=== PATIENT | female | born 1975 | race Caucasian/White ===

== ENCOUNTER 2016-08-18 06:06 | Emergency (ER) | payer OTHER ==
[~2016-08-18 06:06] MED LIST: BENZONATATE100 MG PO; FLU VACCINE 0.0.5 ML IM; LABETALOL HYDR100 MG PO; OMEPRAZOLE40 MG PO; PNEUMOVAX 0.5M0.5 ML IM
--- NOTE | 2016-08-18 06:39 | ED GENERAL ADULT ---
History of Present Illness General Chief Complaint: General Adult Stated Complaint: MULTIPLE COMPLAINTS Source: patient, family Exam Limitations: no limitations Vital Signs & Intake/Output Vital Signs & Intake/Output Vital Signs Date Time Temp Pulse Resp B/P Pulse O2 O2 Flow FiO2 Ox Delivery Rate 08/18 1055 97.1 69 18 149/71 96 Room Air 08/18 0903 98.6 76 18 178/84 98 Room Air 08/18 0755 162/100 08/18 0618 86 22 168/110 98 Triage Note: PER PT HEAD FEELS LIKE IT IS POPPING AND LIKE MY EYES HURT L ARM PAIN AND CHEST PAIN FEEL NAUSEOUS HX OF HTN ON LABETALOL. Triage Nurses Notes Reviewed? yes Onset: awoke with symptoms Duration: hour(s): Timing: recent history Injury Environment: home Severity: moderate Modifying Factors: Improves With: rest. Worsens With: movement. Associated Symptoms: headache, chest pain, nausea, photophobia : No Patient currently breastfeeds: No HPI: 40 yo woman h/o migraine headache, presents with headache and chest pain since 2am, when she awoke with these symptoms. She describes her headache as similar to her prior migraines, "except this one felt a little different... like a popping." She notes a tightness in her chest, worse with deep inspiration. She connotes mild nausea and photophobia, and facial tingling on left side along with left finger tingling. No focal weakness, fever, chills, cough, dyspnea, lower extremity swelling, confusion. She is otherwise well. ([place] OSBORN,FROYLAN Moreau) Allergies Coded Allergies: strawberry (Intermediate, HIVES 08/18/16) Iodinated Contrast Media - Oral and (HIVES 08/18/16) shellfish derived (HIVES 08/18/16) oxycodone (NAUSEA, ITCHING, GI UPSET 08/18/16) Reconcile Medications Benzonatate 100 MG CAPSULE 1 CAP PO TID COUGH (Reported) Flu Vaccine (Flu Vaccine 0.5 Ml (NORVATIS)) 0.5 ML SYR 0.5 ML IM ONCE VACCINE (Reported) LABETALOL HCL (Labetalol Hydrochloride) 100 MG TABLET 0.5 TAB PO BID BP ( Reported) Omeprazole 40 MG CAPSULE.DR 1 CAP PO DAILY ACID REFLUX (Reported) Pneumococcal Vaccine (Pneumovax 0.5ML DANNA) 25 MCG/0.5 ML VIAL 0.5 ML IM ONCE VACCINE (Reported) Prednisone 10 MG TABLET 1 TAB PO DAILY MIGRAINE TAKE 4 TABS FOR 3 DAYS THEN TAKE 3 TABS FOR 3 DAYS THEN TAKE 2 TABS FOR 3 DAYS THEN TAKE 1 TAB FOR 3 DAYS (HIRA OSBORN,[place] Castro) Past History Travel History Traveled to [place] past 21 day No Medical History Any Pertinent Medical History? see below for history Neurological: NONE EENT: NONE Cardiovascular: hypertension Respiratory: NONE Gastrointestinal: GERD Hepatic: NONE Renal: NONE Musculoskeletal: NONE Psychiatric: NONE Endocrine: GESTASTIONAL DM Cancer(s): ENDOMETRIAL CA History of MRSA: No History of VRE: No History of CDIFF: No Pneumonia Vaccine: 03/10/14 Influenza Vaccine: 03/09/14 Surgical History Surgical History: hysterectomy Psychosocial History Who do you live with Spouse Services at Home None What is your primary language Barbadian Tobacco Use: Quit >30 days ago Family History Hx Contributory? No (MT OSBORN,FROYLAN Moreau) Review of Systems Review of Systems Constitutional: Reports: no symptoms. EENTM: Reports: no symptoms. Respiratory: Reports: no symptoms. Cardiovascular: Reports: no symptoms. GI: Reports: no symptoms. Genitourinary: Reports: no symptoms. Musculoskeletal: Reports: no symptoms. Skin: Reports: no symptoms. Neurological/Psychological: Reports: no symptoms. Hematologic/Endocrine: Reports: no symptoms. Immunologic/Allergic: Reports: no symptoms. All Other Systems: Reviewed and Negative (MT OSBORN,FROYLAN Moreau) Physical Exam Physical Exam General Appearance: well developed/nourished, mild distress, moderate distress Head: atraumatic, tenderness along scalp musculature Eyes: Bilateral: normal appearance, PERRL, EOMI. Ears, Nose, Throat: normal pharynx, normal ENT inspection Neck: normal inspection, supple, full range of motion Respiratory: normal breath sounds, no respiratory distress, quiet respiration, lungs clear, parasternal chest wall tenderness to palpation Cardiovascular: regular rate/rhythm Gastrointestinal: normal bowel sounds, soft, non-tender, no organomegaly Back: normal inspection Extremities: normal inspection, normal capillary refill, normal range of motion, no edema Neurologic/Psych: no motor/sensory deficits, awake, alert, oriented x 3 Reflexes: 1+: bicep (R), bicep (L), knee (R), knee (L). Skin: intact, normal color, warm/dry Core Measures ACS in differential dx? No CVA/TIA Diagnosis: No Severe Sepsis Present: No Septic Shock Present: No ([place] OSBORN,FROYLAN Moreau) Progress Differential Diagnoses I considered the following diagnoses in my evaluation of the patient: migraine vs tension headache... i doubt intracranial hemorrhage vs cva/tia vs other. likely costocondritis vs other... I doubt mi/cardiac issues. Plan of Care: Orders Procedure Date/time Status TROPONIN LEVEL 08/18 625 Complete PROTHROMBIN TIME 08/18 625 Complete LIPASE 08/18 625 Complete COMPREHENSIVE METABOLIC PANEL 08/18 625 Complete CBC WITHOUT DIFFERENTIAL 08/18 625 Complete AMYLASE 08/18 625 Complete PARTIAL THROMBOPLASTIN TIME 08/19 619 Complete EKG 08/18 618 Active Laboratory Tests 08/18/16629: APTT Cancelled 08/18/16619: Anion Gap 10, Estimated GFR > 60, BUN/Creatinine Ratio 17.5, Glucose 125 H, Calcium 9.0, Total Bilirubin 0.7, AST 15, ALT 39, Alkaline Phosphatase 82, Troponin I 0.01, Total Protein 7.3, Albumin 4.1, Globulin 3.2, Albumin/Globulin Ratio 1.3, Amylase < 30 L, Lipase 161, PT 10.5, INR 1.00, APTT 33, CBC w Diff NO MAN DIFF REQ, RBC 4.47, MCV 83.5, MCH 27.7, RDW 14.1, MPV 7.8, Gran % 65.8, Lymphocytes % 25.0, Monocytes % 5.4, Eosinophils % 2.3, Basophils % 1.5, Absolute Granulocytes 5.8, Absolute Lymphocytes 2.2, Absolute Monocytes 0.5, Absolute Eosinophils 0.2, Absolute Basophils 0.1, PUBS MCHC 33.2 Diagnostic Imaging: Viewed by Me: Radiology Read, CT Scan. Discussed w/RAD: Radiology Read, CT Scan. Initial ED EKG: normal axis, normal intervals, normal p-waves, normal QRS complex, normal sinus rhythm Hand-Off Endorsed To: HIRA OSBORN,[place] Endorsed Time: 0700 Pending: CT, labs, Xray (MT OSBORN,FROYLAN Moreau) Radiology Impression: PATIENT: FARAZ MEDEL PRESENT AGE: 40 PATIENT ACCOUNT NO: [id number] : 73 LOCATION: [facility] ORDERING PHYSICIAN: FROYLAN AMOR MD SERVICE DATE: 08/18/16 EXAM TYPE: CAT - CT HEAD WO IV CONTRAST EXAMINATION: CT HEAD WITHOUT CONTRAST CLINICAL INFORMATION: Migraine. Head pain. COMPARISON: CT head 01/17/2013 TECHNIQUE: Contiguous axial imaging was performed from the skull base to vertex without intravenous administration of contrast. DLP: 529.16 mGy-cm FINDINGS: There is no evidence of acute intracranial hemorrhage or territorial infarction. No abnormal mass effect or midline shift is seen. Myers to white matter differentiation is well preserved. No extra-axial fluid collections are identified. The ventricles are normal in size. There is no abnormal attenuation within the brain parenchyma. The osseous structures and soft tissues are normal. The mastoid air cells and visualized portions of the paranasal sinuses are well aerated. IMPRESSION: No acute intracranial pathology. DICTATED BY: ALESSANDRO MCCURDY MD DATE/ TIME DICTATED:08/18/16701 CARD SERVICES SPECIALIST:DOMINGUEZ DATE/TIME TRANSCRIBED: 08/18/16701 CONFIDENTIAL, DO NOT COPY WITHOUT APPROPRIATE AUTHORIZATION. < Electronically signed in Other Vendor System> SIGNED BY: ALESSANDRO MCCURDY MD 706 CXR Impression: PATIENT: FARAZ MEDEL PRESENT AGE: 40 PATIENT ACCOUNT NO: [id number] : 73 LOCATION: [facility] ORDERING PHYSICIAN: FROYLAN AMOR MD SERVICE DATE: 08/18/16 EXAM TYPE: RAD - XRY- PORTABLE CHEST XRAY EXAMINATION: XR PORTABLE CHEST CLINICAL INFORMATION: Chest pain COMPARISON: Chest x-ray 01/17/2013 TECHNIQUE: Portable AP view of the chest was obtained. 6:32 AM FINDINGS: No significant abnormality is noted involving the heart, lungs, mediastinum, bony thorax or soft tissues. IMPRESSION: No acute abnormality of the chest DICTATED BY: ALESSANDRO MCCURDY MD DATE/TIME DICTATED:700 CARD SERVICES SPECIALIST:RAD.[email or web address] DATE/TIME TRANSCRIBED:08/18/16700 CONFIDENTIAL, DO NOT COPY WITHOUT APPROPRIATE AUTHORIZATION. <Electronically signed in Other Vendor System> SIGNED BY: ALESSANDRO MCCURDY MD 08/18/16 07 Comments: PT FEELS TIRED AFTER THE VALIUM BUT STILL HAS THE SAME HEADACHE, NO DECREASE IN INTENSITY. ([place] INIGUEZ MD) Departure Departure Condition: Stable Clinical Impression Primary Impression: Headache Secondary Impressions: Chest pain Referrals: ALBERTINA OSBORN,SAL Shannon (PCP/Family) Departure Forms: Customer Survey General Discharge Information (FROYLAN AMOR MD) Departure Disposition: HOME OR SELF CARE Additional Instructions: FOLLOW UP WITH DR. ENG RETURN IF SYMPTOMS WORSEN OR FOR ANY CONCERNS Prescriptions: Current Visit Scripts Prednisone 1 TAB PO DAILY #30 TAB TAKE 4 TABS FOR 3 DAYS THEN TAKE 3 TABS FOR 3 DAYS THEN TAKE 2 TABS FOR 3 DAYS THEN TAKE 1 TAB FOR 3 DAYS ([place] INIGUEZ MD) Critical Care Note Critical Care Note Critical Care Time: non-applicable (FROYLAN AMOR MD) ([place] INIGUEZ MD) Critical Care Note Critical Care Note Critical Care Time: non-applicable (FROYLAN AMOR MD)
[2016-08-18 06:46] LABS: ABSOLUTE BASOPHIL COUNT 0.1 /CUMM (0.0-0.2); ABSOLUTE EOSINOPHIL COUNT 0.2 /CUMM (0.0-0.7); ABSOLUTE GRANULOCYTE CT 5.8 /CUMM (1.4-6.5); ABSOLUTE LYMPH COUNT 2.2 /CUMM (1.2-3.4); ABSOLUTE MONOCYTE COUNT 0.5 /CUMM (0.10-0.60); BASOPHIL % 1.5 % (0.0-2.0); EOSINOPHIL % 2.3 % (0-5); GRANULOCYTE % 65.8 % (42.2-75.2); HEMATOCRIT 37.3 % (37-47); MEAN CORPUSCULAR HGB 27.7 PG (27.0-31.0); MEAN CORPUSCULAR HGB CONC 33.2 G/DL (33.0-37.0); MEAN CORPUSCULAR VOLUME 83.5 FL (81.0-99.0); MEAN PLATELET VOLUME 7.8 FL (7.4-10.4); PLATELET COUNT 337 /CUMM (130-400); RBC DISTRIBUTION WIDTH 14.1 % (11.5-14.5); RED BLOOD CELL CT 4.47 /CUMM (4.20-5.40); WHITE BLOOD CELL COUNT 8.8 /CUMM (4.8-10.8)
[2016-08-18 06:55] LABS: PT 10.5 SEC (9.4-12.5); PTT 33 SEC (25-37)
--- NOTE | 2016-08-18 07:06 | RADIOLOGY REPORT ---
EXAMINATION: XR PORTABLE CHEST CLINICAL INFORMATION: Chest pain COMPARISON: Chest x-ray 01/17/2013 TECHNIQUE: Portable AP view of the chest was obtained. 6:32 AM FINDINGS: No significant abnormality is noted involving the heart, lungs, mediastinum, bony thorax or soft tissues. IMPRESSION: No acute abnormality of the chest
--- NOTE | 2016-08-18 07:07 | CT SCAN REPORT ---
EXAMINATION: CT HEAD WITHOUT CONTRAST CLINICAL INFORMATION: Migraine. Head pain. COMPARISON: CT head 01/17/2013 TECHNIQUE: Contiguous axial imaging was performed from the skull base to vertex without intravenous administration of contrast. DLP: 529.16 mGy-cm FINDINGS: There is no evidence of acute intracranial hemorrhage or territorial infarction. No abnormal mass effect or midline shift is seen. Myers to white matter differentiation is well preserved. No extra-axial fluid collections are identified. The ventricles are normal in size. There is no abnormal attenuation within the brain parenchyma. The osseous structures and soft tissues are normal. The mastoid air cells and visualized portions of the paranasal sinuses are well aerated. IMPRESSION: No acute intracranial pathology.
[2016-08-18] MEDS ORDERED: PREDNISONE10 M2 PO (11:55)
[2016-08-18 12:05] VITALS: BP 148/85
== END 2016-08-18 12:05 ==
LOC: ERH 06:06
PROVIDERS: Emergency Medicine
DX: R51 Headache (principal); R07.89 Other chest pain
CPT/HCPCS: 93005; 93010; 96374; 96375; J1200; J1885; J2405; J2765; J3360